=== PATIENT | female | born 1945 | race Caucasian/White ===

== ENCOUNTER → 2017-06-10 | Outpatient (CLI) | payer MEDICARE | LOC: M.RAD 10:59 | DX: Z12.31 Encounter for screening mammogram for malignant neoplasm of breast (principal); M81.0 Age-related osteoporosis without current pathological fracture; M85.88 Other specified disorders of bone density and structure, other site; Z78.0 Asymptomatic menopausal state ==

== ENCOUNTER 2018-05-17 09:20 | Emergency (ER) | payer MEDICARE ==
[~2018-05-17] VITALS: Ht 157.5 cm; Wt 104.3 kg
[2018-05-17] MEDS ORDERED: SYNTHROID175 MCG PO (09:38)
[2018-05-17] MEDS ORDERED: CARDIZEM CD120 MG PO (09:39)
[2018-05-17] MEDS ORDERED: SYNTHROID75 MCG PO (09:40)
[2018-05-17 12:19] LABS: ABSOLUTE EOSINOPHILS 0.1 thou/uL (0.0-0.7); ABSOLUTE LYMPHOCYTES 2.3 thou/uL (0.8-5.3); ABSOLUTE MONOCYTES 0.4 thou/uL (0.0-1.2); ABSOLUTE NEUTROPHILS 2.9 thou/uL (1.6-8.1); BASOPHILS 0.6 %; EOSINOPHILS 2.2 %; HEMATOCRIT 40.9 % (37.0-47.0); HEMOGLOBIN 13.8 gm/dL (12.0-15.0); LYMPHOCYTES 40.4 %; MCH 30.6 pg (26.0-34.0); MCHC 33.7 g/dL (28.0-37.0); MCV 90.7 fL (80.0-100.0); MONOCYTES 6.6 %; MPV 7.6 fl. (7.2-11.1); NUCLEATED RBCS 0 /100WBC; PLATELET COUNT* 280 thou/uL (150-400); POLYS 50.2 %; RBC 4.51 mil/uL (4.20-5.00); RDW-CV 13.2 % (10.5-14.5); WBC 5.8 thou/uL (4.0-11.0)
[2018-05-17 12:26] LABS: CALCIUM 8.9 mg/dL (8.5-10.1); CREATININE 0.8 mg/dL (0.6-1.3); POTASSIUM 4.4 mmol/L (3.5-5.1)
[2018-05-17 12:30] LABS: ALBUMIN 3.5 g/dL (3.4-5.0); TOTAL BILIRUBIN 0.3 mg/dL (<0.1-1.0); TOTAL PROTEIN 7.1 g/dL (6.4-8.2)
[2018-05-17] MEDS ORDERED: DIAZEPAM2 MG PO (13:17)
[2018-05-17 13:24] LABS: URINE BILIRUBIN NEGATIVE (Negative); URINE BLOOD NEGATIVE (Negative); URINE CLARITY CLEAR; URINE COLOR YELLOW; URINE GLUCOSE-RANDOM NEGATIVE (Negative); URINE KETONES NEGATIVE (Negative); URINE LEUKOCYTES-REFLEX NEGATIVE (Negative); URINE NITRITE-REFLEX NEGATIVE (Negative); URINE PROTEIN NEGATIVE (Negative); URINE SPECIFIC GRAVITY 1.015 (1.005-1.030); URINE UROBILINOGEN 0.2 E.U./dl (0.2-1.0)
[2018-05-17 13:58] VITALS: BP 143/64
== END 2018-05-17 13:59 | disposition home or self-care (01) ==
LOC: M.ERS 09:20
PROVIDERS: Personal Emergency Response Attendant
DX: R42 Dizziness and giddiness (principal); I10 Essential (primary) hypertension; E03.9 Hypothyroidism, unspecified; K21.9 Gastro-esophageal reflux disease without esophagitis; F32.9 Major depressive disorder, single episode, unspecified; M25.569 Pain in unspecified knee; G89.29 Other chronic pain; Z91.040 Latex allergy status; Z90.710 Acquired absence of both cervix and uterus

== ENCOUNTER → 2018-05-23 | Outpatient (CLI) | payer MEDICARE ==
[~2018-05-23] MED LIST: CARDIZEM CD120 MG PO; DIAZEPAM2 MG PO; SYNTHROID175 MCG PO; SYNTHROID75 MCG PO
== END ==
LOC: M.ULTRA 05-19 10:36
DX: I35.0 Nonrheumatic aortic (valve) stenosis (principal); R42 Dizziness and giddiness; R11.0 Nausea; H53.9 Unspecified visual disturbance

== ENCOUNTER → 2018-07-11 | Outpatient (CLI) | payer MEDICARE | LOC: M.RAD 15:29 | DX: Z12.31 Encounter for screening mammogram for malignant neoplasm of breast (principal) ==

== ENCOUNTER → 2019-07-17 | Outpatient (CLI) | payer MEDICARE | LOC: M.RAD 05:51 | DX: Z12.31 Encounter for screening mammogram for malignant neoplasm of breast (principal) ==

== ENCOUNTER → 2019-07-19 | Outpatient (CLI) | payer MEDICARE | LOC: M.ULTRA 09:23 | DX: N63.10 Unspecified lump in the right breast, unspecified quadrant (principal); N60.01 Solitary cyst of right breast ==

== ENCOUNTER → 2020-01-19 | Outpatient (CLI) | payer MEDICARE | LOC: M.RAD 01-02 15:26 → M.ULTRA 01-04 10:40 → M.RAD 01-04 10:40 | PROVIDERS: ATTEND Family Medicine | DX: N63.0 Unspecified lump in unspecified breast (principal); N64.89 Other specified disorders of breast ==

== ENCOUNTER → 2020-09-06 | Outpatient (CLI) | payer OTHER | LOC: M.RAD 08-30 13:31 | PROVIDERS: ATTEND Family Medicine | DX: Z12.31 Encounter for screening mammogram for malignant neoplasm of breast (principal); N63.10 Unspecified lump in the right breast, unspecified quadrant; R91.8 Other nonspecific abnormal finding of lung field; R92.1 Mammographic calcification found on diagnostic imaging of breast ==

== ENCOUNTER → 2020-09-12 | Outpatient (CLI) | payer OTHER ==
--- NOTE | 2020-09-18 10:08 | PATH ---
[address] [address] PATHOLOGY RPT PROCEDURE Name: GAGE SMITH Room: [facility]#: [id number] Admission: 09/12/20 Date of : 47 Discharge: Report #: [id number] Path Case #: [id number] [facility] Accession Number: [id number] . 01 Material submitted: . Subareolar - RIGHT BREAST MASS SUBAREOLAR. Modifiers: right . 01 Clinical history: . IN FORMALIN AT 9:35 0.96 X 1.15 X 0.85 CM SUBAREOLAR . 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 SEE COMMENT. . (ANA LILIA:ruth; 09/16/2020) . . Surgical Pathology Cancer Case Summary . INVASIVE CARCINOMA OF THE BREAST: Biopsy . Procedure ___ Other: Not specified . Specimen Laterality ___ Right . Tumor Site ___ Other: Subareolar . Tumor Size ___ Greatest dimension of largest invasive focus >1 mm: 11 mm . Histologic Type ___ Invasive carcinoma of no special type (ductal) . Histologic Grade (Nael Histologic Score) . Glandular (Acinar)/Tubular Differentiation ___ Score 2 (10% to 75% of tumor area forming glandular/tubular structures) . Nuclear Pleomorphism ___ Score 2 (cells larger than normal with open vesicular nuclei, visible nucleoli, and moderate variability in both size and shape) [place] [address] PATHOLOGY RPT PROCEDURE Name: DANNLISAGAGE Room: [facility] Teddy#: [id number] Admission: 09/12/20 Date of : 47 Discharge: Report #: [id number] Path Case #: [id number] ___ Score 2 . Overall Grade ___ Grade 2 (scores of 6 or 7) . Ductal Carcinoma In Situ (DCIS) ___ Present . Architectural Patterns ___ Cribriform . Nuclear Grade (if DCIS is present) ___ Grade II (intermediate) . Necrosis ___ Not identified . Lymphovascular Invasion ___ Not identified . Microcalcifications ___ Present in invasive carcinoma ___ Present in non-neoplastic tissue . Ancillary Studies . Biomarker Studies ___ Pending . (ANA LILIA:ruth; 09/16/2020) QLM 09/16/2020 1032 Local . 02 Comment: Approximately 75% of submitted tissues are involved by invasive neoplasm. Properly-controlled immunohistochemical stains performed on A1 show the neoplastic cells to have the following characteristics, supporting the diagnosis: . E-cadherin: Positive CK7: Positive . Breast tumor profile studies are pending on A2 and will be the subject of an addendum report. Mable Nuñez ([facility] Breast Navigator) notified at approximately 1015 on 09/16/2020. . Reviewed with Dr. Casey Mclaughlin, who agrees with the diagnosis. . (ANA LILIA:ruth; 09/16/2020) [place] [address] PATHOLOGY RPT PROCEDURE Name: GAGE SMITH Room: [facility]#: [id number] Admission: 09/12/20 Date of : 47 Discharge: Report #: [id number] Path Case #: [id number] . 02 Addendum: . Special studies report received from [facility], [address] [place] [address], [address], [place], [address], on case [id number], labeled with their number [id number], dated 09/17/2020. . Breast/Prognostic Marker Analysis . Specimen Site: Rt Breast, Mass, Subareolar, Breast Carcinoma (Biopsy) Specimen ID #: [id number] . ER (Estrogen Receptor) Positive Percent: 95.00% Analysis: Manual Staining Intensity: Strong Internal Control: Present and Positive . WV (Progesterone Receptor) Negative Percent: 0.50% Analysis: Manual Staining Intensity: Weak to Moderate Internal Control: Present and Positive . HER2 Negative Score: 0 Analysis: Manual . Ki-67 High Proliferation Percent: 25.00% Analysis: Manual . . Time to Fixation (Cold Ischemic Time): 1 minute Duration of Fixation: 12 hours and 15 minutes Type of Fixative: 10% Neutral Buffered Formalin . . at [facility]. Eden Kennedy M.D. Pathologist . . Methodology: The HER2 Receptor protein expression is analyzed [place] [address] PATHOLOGY RPT PROCEDURE Name: GAGE SMITH Room: [facility]#: [id number] Admission: 09/12/20 Date of : 47 Discharge: Report #: [id number] Path Case #: [id number] rabbit monoclonal antibody (clone 4B5). This assay is used for diagnostic determination of the HER2 protein over-expression in paraffin embedded, formalin fixed breast cancer tissue on the [employer] Benchmark. The specimen is processed using a secondary antibody-HRP conjugate detection system. The membrane staining of the tumor is determined either by manual score or image analysis. This antibody is intended for in vitro diagnostic use. The score is reported as 0, 1+, 2+, or 3+. This test is used for clinical purposes. . A rabbit monoclonal antibody (clone SP1) that recognized the Estrogen Receptor is used to perform immunohistochemistry on routinely fixed (formalin) paraffin embedded tissue on the [employer] Benchmark. The specimen is processed using a secondary antibody-HRP conjugate detection system. The percentage of stained tumor nuclei is determined either manually or by image analysis. This test is intended for in vitro diagnostic use. This test is used for clinical purposes. . A rabbit monoclonal antibody (clone 1E2) that recognized the Progesterone Receptor is used to perform immunohistochemistry on routinely fixed (formalin) paraffin embedded tissue on the [employer] Benchmark. The specimen is processed using a secondary antibody-HRP conjugate detection system. The percentage of stained tumor nuclei is determined either manually or by image analysis. This test is intended for in vitro diagnostic use. This test is used for clinical purposes. . A rabbit monoclonal antibody (clone 30-9) that recognized Ki67 is used to perform immunohistochemistry on routinely fixed (formalin) paraffin embedded tissue on the [employer] Benchmark. The specimen is processed using a secondary antibody-HRP conjugate detection system. The percentage of stained tumor nuclei is determined either manually or by image analysis. This test is intended for in vitro diagnostic use. This test is used for clinical purposes. . Intended Use: This antibody is intended for in vitro diagnostic (IVD) use. HER2 (4B5) is a rabbit monoclonal antibody intended for the semi-quantitative detection of HER2 antigen in sections of formalin-fixed, paraffin embedded neoplastic tissue. . This antibody is intended for in vitro diagnostic (IVD) use. Estrogen Receptor (ER) (SP1) is a rabbit monoclonal antibody (IgG) that is intended for the qualitative detection of estrogen receptor (ER) antigen in sections of formalin-fixed, paraffin-embedded tissue. ER is a rabbit monoclonal antibody that recognizes human estrogen receptor alpha. . This antibody is intended for in vitro diagnostic (IVD) use. Progesterone Receptor (WV) (1E2) is a rabbit monoclonal antibody (IgG) that is intended for the qualitative detection of progesterone receptor (WV) antigen in sections of formalin fixed, paraffin embedded tissue. WV is a rabbit [facility] [address] [place] [address] PATHOLOGY RPT PROCEDURE Name: GAGE SMITH Room: [facility]#: [id number] Admission: 09/12/20 Date of : 47 Discharge: Report #: [id number] Path Case #: [id number] monoclonal antibody that recognizes the A and B forms of the human progesterone receptor. . This antibody is intended for in vitro diagnostic (IVD) use. Ki-67 (30-9) is a rabbit monoclonal antibody (IgG) directed against C-terminal portion of Ki-67 antigen. Staining for Ki-67 can be used to aid in assessing the proliferative activity of normal and neoplastic tissue. Ki-67 is a nuclear protein expressed in proliferating cells. During the cell cycle, the Ki-67 antigen is present in the G1, S, G2 and M phase but is absent in the G0 (quiescent phase). . Disclaimer: This Test was performed by [facility] at [facility], [address]. . [facility] is a business unit of [facility] a wholly-owned subsidiary of [employer]. . This assay has not been validated on decalcified tissues. Results should be interpreted with caution if this specimen was decalcified given the likelihood of false negativity on decalcified specimens. . Any image(s) that accompany this report is/are a provider service representative image(s) only and should not be used to render a diagnosis. . This interpretation is contingent on the specimen and the clinical information received. . For any special tests/stains performed, known positive cells or tissues are tested with each marker and examined to ensure positivity. Positive and negative internal controls, if present, react appropriately. . This analysis is an adjunct to the evaluation of the referring physician and does not represent a final diagnosis. . The immunohistochemistry tests performed at [facility] [place]. were validated on tissue fixed in 10% neutral buffered formalin. The performance characteristics of the tests performed on tissue processed in other fixatives is not known. . HER2 testing at [facility] [place] is performed in compliance with the 2018 updated ASCO/CAP Clinical Practice Guideline Focused Update. If the result is EQUIVOCAL (2+), it must be confirmed by an alternative assay such as FISH. . REFERENCE : Leila CASAREZ, Warren TABARES, Uma KH, et al: Human epidermal growth factor receptor 2 testing in breast cancer: ASCO/CAP clinical practice guideline focused update. [place] [address] PATHOLOGY RPT PROCEDURE Name: GAGE SMITH Room: [facility]#: [id number] Admission: 09/12/20 Date of : 47 Discharge: Report #: [id number] Path Case #: [id number] 2017;142:8069-4095. . HER2 and ER/WV ASCO/CAP guidelines require fixation in neutral buffered formalin for a minimum of 6 and a maximum of 72 hours. Fixation times less than 6 hours may not adequately preserve cell proteins. Fixation times longer than 72 hours may cause excess cross-linking of proteins reducing the antigen available for staining. Either scenario can cause reduced staining; hence false negative results are possible and should be considered for these situations if the HER2 IHC score is less than 3+ or ER or WV is negative (no staining or <1% positive). It is recommended that specimens fixed longer than 72 hours with HER2 IHC scores less than 3+ be confirmed by HER2 FISH. The time from biopsy/excision to fixation in formalin (cold ischemic time) must be less than 1 hour. Time to fixation (cold ischemic time) greater than 1 hour should be interpreted with caution. HER2 testing, mainly HER2 by FISH, is particularly vulnerable since excessive cold ischemic time results in preferential loss of HER2 probe signals that may lead to false negative results. Use of unstained slides cut more than 6 weeks before analysis is not recommended. . ER/PgR testing at [facility] [place]. is performed in compliance with the ASCO/CAP Clinical Practice Guidelines. If the result for ER is 1-10% it is reported as Low Positive, < 1% is Negative and > 10% is Positive. PgR is reported as Negative if < 1% and Positive if > or equal to 1%. . REFERENCE: Uma HANCOCK, Warren TABARES, Porsche M,et al. Estrogen and progesterone receptor testing in breast cancer. ASCO/CAP guideline update. Arch Pathol Lab Med. 2020;144:545-563. . SCORE STAINING PATTERN IN TUMOR CELLS INTERPRETATION RESULTS 0 No staining observed or incomplete, faint membrane staining in less than or equal to 10% of tumor cells. Negative 1+ Incomplete, faint membrane staining in greater than 10% of tumor cells. Negative 2+ Weak to moderate complete membrane staining observed in greater than 10% of tumor cells. Equivocal* *Must be confirmed by alternative assay (IHC/FISH/Dual BRYAN) 3+ Intense, complete membrane staining in greater than 10% of tumor cells. Positive . A complete copy of the report is [place] [address] PATHOLOGY RPT PROCEDURE Name: GAGE SMITH Room: [facility]#: [id number] Admission: 09/12/20 Date of : 47 Discharge: Report #: [id number] Path Case #: [id number] Professional and Technical services performed by [facility] at [address], [place] [address]. . (ANA LILIA:[facility] 09/18/2020) . [facility]/09/18/2020 Addendum Electronically Signed by Micah Lazar MD, Pathologist . 02 Electronically signed: . Micah Lazar MD, Pathologist NPI- [id number] . 01 Gross description: . The specimen is received in formalin, labeled "Gage Smith, right breast mass subareolar". Received are multiple needle cores of fibrofatty tissue measuring 2.8 x 1.8 x 0.3 cm in aggregate dimensions. The specimen is entirely submitted in cassettes A1 through A3. The cold ischemic time is 1 minute. The total formalin fixation time is 12 hours and 15 minutes. ([facility]; 09/12/2020) QA/QA 09/12/2020 1630 Local . 02 Pathologist provided ICD-10: C50.911 . 02 CPT . 294511, M87698, P79831 Specimen Comment: A courtesy copy of this report has been sent to [phone] Specimen Comment: Report sent to Performed at: 01 [facility] [address], [place], [place] [id number] MD Jarvis Lindsey MD Phone: [phone] Performed at: 02 [facility] [address], [place], [place] [address] MD Micah Lazar MD Phone: [phone]
== END | disposition home or self-care (01) ==
LOC: M.ULTRA 08:07
PROVIDERS: ATTEND Family Medicine
DX: N63.10 Unspecified lump in the right breast, unspecified quadrant (principal); C50.911 Malignant neoplasm of unspecified site of right female breast; R92.8 Other abnormal and inconclusive findings on diagnostic imaging of breast; Z79.899 Other long term (current) drug therapy

== ENCOUNTER → 2020-09-24 | Outpatient (CLI) | payer OTHER ==
[2020-09-24 13:52] LABS: CREATININE 0.8 mg/dL (0.6-1.3)
== END ==
LOC: M.LAB 13:23 → M.MRI 14:30
PROVIDERS: ATTEND Surgery
DX: C50.911 Malignant neoplasm of unspecified site of right female breast (principal)

== ENCOUNTER → 2020-10-01 | Outpatient (CLI) | payer OTHER | LOC: M.RAD 09:49 | PROVIDERS: ATTEND Family Medicine | DX: M85.88 Other specified disorders of bone density and structure, other site (principal) ==

== ENCOUNTER → 2020-11-01 | Outpatient (CLI) | payer OTHER ==
[~2020-11-01] MED LIST changes: +ROXICODONE5 MG PO; +VITAMIN D210 MCG PO
== END | disposition home or self-care (01) ==
LOC: M.ULTRA 12:30
PROVIDERS: ATTEND Radiology Diagnostic Radiology
DX: N63.11 Unspecified lump in the right breast, upper outer quadrant (principal); Z98.890 Other specified postprocedural states; Z79.899 Other long term (current) drug therapy; Z91.040 Latex allergy status

== ENCOUNTER → 2020-11-04 | Day surgery (SDC) | payer OTHER ==
[2020-11-04 07:35] LABS: HEMATOCRIT 39.4 % (37.0-47.0); HEMOGLOBIN 13.6 gm/dL (12.0-15.0); MCH 31.2 pg (26.0-34.0); MCHC 34.5 g/dL (28.0-37.0); MCV 90.7 fL (80.0-100.0); MPV 7.7 fl. (7.2-11.1); RBC 4.34 mil/uL (4.20-5.00); RDW-CV 13.7 % (10.5-14.5); WBC 6.2 thou/uL (4.0-11.0)
[2020-11-04 07:41] LABS: CALCIUM 9.2 mg/dL (8.5-10.1); CREATININE 0.9 mg/dL (0.6-1.3); POTASSIUM 4.3 mmol/L (3.5-5.1)
--- NOTE | 2020-11-04 14:19 | EKG ---
[place] [address] ELECTROCARDIOGRAM REPORT Name: SMITA DUNHAM Room: [facility]#: [id number] Admission: 11/04/20 Attend Phys: Vanesa Bloom, Discharge: Date of : 47 Date of Service: 11/04/20747 Report #: [id number] THIS REPORT FOR: //name// [facility] Test Date: 2020-11-04 Test Time: 07:48:53 Pat Name: SMITA DUNHAM Department: Room: Gender: Counselor/Art Therapist: : 1945 Requested By: Vanesa Bloom Order Number: [id number] Reading MD: uJan Beltran Measurements Intervals Trinity Rate: 66 P: 39 NC: 171 QRS: -30 QRSD: 98 T: 5 QT: 407 QTc: 427 Interpretive Statements Sinus rhythm Left axis deviation No previous ECG available for comparison Electronically Signed On 11-04-2020 14:19:13 CDT by Juan Beltran [email or web address] <ELECTRONICALLY SIGNED> By: Juan Beltran MD, [facility] 11/04/20 1419 7 Juan Beltran MD, FACC /EPI
--- NOTE | 2020-11-06 11:08 | OP ---
[address] [address] OPERATIVE REPORT Name: SMITA DUNHAM Room: [facility]#: [id number] Admission: 11/04/20 Attend Phys: Vanesa Bloom DO Discharge: Date of : 47 Report #: [id number] THIS REPORT FOR: cc: Flakita Loyd Linda J. DO Brock, Christie M. DO ~ DOC #: [id number] Vanesa Bloom DO DATE OF SURGERY: 11/04/2020 PREPROCEDURE DIAGNOSIS: Right breast cancer. POSTPROCEDURE DIAGNOSIS: Right breast cancer. FINDINGS: An RFID tag had been placed just beneath the nipple. Uptake at the nipple with Neoprobe was 11,000. We found 3 deep sentinel lymph nodes; #1 was 1500, #2 was 1200; #3 was 500. SURGEON: Vanesa Bloom DO CO-SURGEON: Tyler Calixto, PGY1. PROCEDURE PERFORMED: Right nipple and areolar complex excision with right deep sentinel lymph node dissection. ANESTHESIA: LMA and local. ESTIMATED BLOOD LOSS: 15. DRAINS: None. SPECIMENS: Right nipple-areolar complex and sentinel lymph nodes x 3. COMPLICATIONS: None. CONDITION: Stable. DISPOSITION: PACU to home. HISTORY OF PRESENT ILLNESS: The patient is a very pleasant 75-year-old female, who presented to my office with a change in her mammogram. She had undergone a right breast biopsy, which did find a right breast cancer. She was seen by Oncology and Radiation Oncology and underwent an MRI. Unfortunately, the mass was just deep to the nipple-areolar complex. So, it did not appear that we would be able to save the nipple. These findings were discussed with the patient and she agreed to proceed with the [place] [address] OPERATIVE REPORT Name: SMITA DUNHAM Room: [facility]#: [id number] Admission: 11/04/20 Attend Phys: Vanesa Bloom DO Discharge: Date of : 47 Report #: [id number] and sentinel lymph node dissection. Risks discussed included bleeding, infection, pain, scar formation, need for further surgery, injury to nerve, artery or vein causing chronic pain, numbness or swelling and risks of general anesthesia. The patient understood these risks and elected to proceed. In the preoperative period, the patient presented to Radiology and underwent a right RFID tag placement and also a right nuclear medicine injection. She then presented to preop, where she underwent informed consent. DESCRIPTION OF PROCEDURE: She was taken to the OR and laid supine on the operating table. SCDs were placed on bilateral lower extremities. Ancef was given in the perioperative period. General LMA anesthesia was induced by Anesthesia without difficulty. Right chest and axilla were prepped and draped in standard sterile fashion. Time-out was performed to verify the patient and procedure. 5 mL of Lymphazurin blue dye were injected in the periareolar area. The hologic RFID probe was then brought into the field and the tag was identified just deep to the nipple on the right. An elliptical incision was marked out around the right nipple. 20 mL of 0.5% Marcaine were injected into the planned incision. Incision was made with 15 blade. Cautery was used for hemostasis. Cautery was then used to dissect the breast tissue away. The hologic probe was used several times to verify placement of the clip. Once our specimen was completely extracted, it was marked in the superior and lateral directions, was sent to Radiology. The radiologist did call and indicated that we had excellent specimen with both clips intact. Hemostasis was assured within this wound. We then turned our attention to the right axilla. Neoprobe was brought onto the field and the injection site was interrogated and it was approximately 11,000. Neoprobe was then used to interrogate the axilla and the area of highest uptake was marked. 10 mL of 0.5% Marcaine were injected in this area. Incision was made with 15 blade. Cautery was used for hemostasis. Weitlaner retractor was placed within the wound. Then, using a combination of blunt and cautery dissection, we dissected down till the clavipectoral fascia was identified. This was then also gently incised. At this point, a very clear blue lymphatic was identified. Using the blue dye and the Neoprobe for guidance, we dissected fairly deep into the axilla. At this point, we started getting high uptakes on the Neoprobe. Three sentinel lymph nodes were finally identified; the first was blue and had an uptake of 1500, this was handed off as sentinel lymph node #1; an additional lymph node was identified just lateral to this lymph node and had an uptake of 1200, this was handed off as sentinel lymph node #2; a third lymph node was also identified with an uptake of 500, this was also handed off and was labeled as sentinel lymph node #3. The axilla was then copiously irrigated. Hemostasis was assured. The breast was also irrigated and hemostasis was assured. Bonnie was placed within both wounds. Both wounds were then closed in a layered fashion using deep and superficial stitches of 3-0 Vicryl in an inverted interrupted fashion. Skin wounds were closed with running 4-0 Monocryl. A total of 30 mL of 0.5% Marcaine was used to anesthetize the wounds. Wounds were then cleansed and covered with Dermabond. The patient was [address] [address] OPERATIVE REPORT Name: SMITA DUNHAM [id number] Admission: 11/04/20 Attend Phys: Vanesa Bloom DO Discharge: Date of : 47 Report #: [id number] then allowed to awaken from anesthesia, was extubated and transported to the recovery room with no further difficulties. Counts were correct x 2 at the conclusion of the case. DO MAMTA Hough/ROBE <ELECTRONICALLY SIGNED> By: Vanesa Bloom DO 11/06/20 1108 0938 1031Chal Bloom DO /nt
--- NOTE | 2020-11-07 15:08 | PATH ---
[address] [address] PATHOLOGY RPT PROCEDURE Name: GAGE SMITH Room: [facility]#: [id number] Admission: 11/04/20 Date of : 47 Discharge: Report #: [id number] Path Case #: [id number] [facility] Accession Number: [id number] . 01 Material submitted: . PART A: nipple - NIPPLE. Modifiers: right PART B: breast - SENTINEL NODE 1500. Modifiers: right, 1500 PART C: breast - SENTINEL NODE 1200. Modifiers: right, 1200 PART D: breast - SENTINEL NODE 500. Modifiers: right, 500 . 01 Clinical history: . INVASIVE DUCTAL CARCINOMA RIGHT BREAST A- COMPLEX SHORT SUTURE=SUPERIOR; LONG SUTURE=LATERAL . 02 Diagnosis: A. Nipple complex: - INFILTRATING DUCTAL ADENOCARCINOMA, INTERMEDIATE GRADE, SPANNING 13 MM, ADJACENT TO CHANGES OF PRIOR BIOPSY, WITH FOCAL INVOLVEMENT OF SUPERIOR MARGIN (2 MM SPAN). SEE COMMENT. . B. [place] node 1500: - One benign lymph node (0/1). See comment. . C. Submitted as "sentinel node 1200": - Three benign lymph nodes (0/3). See comment. . D. [place] node 500: - One benign lymph node (0/1). See comment. . (ANA LILIA:emir; 11/07/2020) . . CASE SUMMARY: (DCIS OF THE BREAST: Resection) . Procedure ___ Not specified . Specimen Laterality ___ Right . TUMOR . +Tumor Site ___ Other: Subareolar . +Tumor Size ___ Greatest dimension of largest invasive focus greater than 1 mm: 13 [place] [address] PATHOLOGY RPT PROCEDURE Name: GAGE SMITH Room: [facility]#: [id number] Admission: 11/04/20 Date of : 47 Discharge: Report #: [id number] Path Case #: [id number] ___ Invasive carcinoma of no special type (ductal) . Histologic Grade (Reading Histologic Score) Glandular (Acinar) / Tubular Differentiation ___ Score 2 (10% to 75% of tumor area forming glandular / tubular structures) . Nuclear Pleomorphism ___ Score 2 (Cells larger than normal with open vesicular nuclei, visible nucleoli, and moderate variability in both size and shape) . Mitotic Rate ___ Score 2 . Overall Grade ___ Grade 2 (scores of 6 or 7) . + Tumor Focality + ___ Single focus of invasive carcinoma . Ductal Carcinoma In Situ (DCIS) ___ Present + ___ Negative for extensive intraductal component (EIC) . + Size (Extent) of DCIS +___ At least 3 mm + Architectural Patterns + ___ Cribriform . + Nuclear Grade (if DCIS is present in specimen, see Table 2) + ___ Grade II (intermediate) . + Necrosis + ___ Not identified . + Lobular Carcinoma In Situ (LCIS) + ___ Not identified . Tumor Extension Skin ___ Skin is present and uninvolved . Nipple ___ DCIS does not involve the nipple epidermis . Skeletal Muscle ___ No skeletal muscle is present . Invasive [place] [address] PATHOLOGY RPT PROCEDURE Name: GAGE SMITH Di Room: [facility]#: [id number] Admission: 11/04/20 Date of : 47 Discharge: Report #: [id number] Path Case #: [id number] ___ Positive for invasive carcinoma ___ Superior + Extent: 2 mm . + Distance from other margins: + ___ Posterior: 18 mm + ___ Inferior: 19 mm + ___ Medial: 37 mm + ___ Lateral: 25 mm . DCIS Margins ___ Uninvolved by DCIS . Distance from closest margin: ___ 3 mm . Closest margin: Superior . Regional Lymph Nodes ___ Uninvolved by tumor cells Total Number of Lymph Nodes Examined: 5 Number of [place] Nodes Examined: 5 . Treatment Effect in the Breast ___ No known presurgical therapy . + Lymphovascular Invasion + ___ Not identified . + Dermal Lymphovascular Invasion + ___ Not identified . . PATHOLOGIC STAGE CLASSIFICATION (pTNM, AJCC 8TH EDITION) Primary Tumor (pT) ___ pT1: Tumor less than or equal to 20 mm in greatest dimension . Regional Lymph Nodes Modifier ___ (sn): [place] node(s) evaluated. . Regional Lymph Nodes (pN) ___ pN0: No regional lymph node metastasis identified or ITCs only . + Ancillary Studies + ___ Breast Biomarker Testing Performed on Previous Biopsy + Testing Performed on A2 . + Estrogen Receptor (ER) + ___ Positive 95% [place] [address] PATHOLOGY RPT PROCEDURE Name: GAGE SMITH Room: [facility]#: [id number] Admission: 11/04/20 Date of : 47 Discharge: Report #: [id number] Path Case #: [id number] . + Progesterone Receptor (PgR) + ___ Weak 0.5% . + HER2 (by immunohistochemistry) + ___ Negative (Score 0) . + ___ Ki-67 percentage of positive nuclei: 25% . + Microcalcifications + ___ Present in invasive carcinoma . (ANA LILIA:emir; 11/07/2020) [facility] 11/07/2020 1431 Local . 02 Comment: The tumor is seen to invade in several patterns including a region of well circumscribed consolidated nests and more extensively as cords and individual infiltrating cells and ductal structures seem to permeate fat reminiscent of that seen with lobular carcinoma. Properly controlled immunohistochemical studies are performed on several blocks with results as follows: . A8: Keratin DELORIS - highlights infiltrating pattern of neoplastic cells. E-cadherin - positive. . A9: Keratin AE1/AE3 - highlights neoplastic cells. . The tumor is seen to focally involve the superior margin for a 2 mm span in A8. Properly controlled keratin AE1/AE3 stains performed on B1, C1 and D1 are all negative. . (ANA LILIA:emir; 11/07/2020) . 02 Electronically signed: . Micah Lazar MD, Pathologist NPI- [id number] . 01 Gross description: . A. The specimen is received in formalin, labeled "Gage Smith, short superior, long lateral". The specimen is additionally labeled on the requisition as, "nipple, complex, short superior, long lateral". The source is further designated in the clinical background as, "right breast". Received is a 48 g lumpectomy specimen measuring 6.3 cm from medial to lateral, 4.8 cm from anterior to posterior, and 3.9 cm from superior to inferior. The anterior aspect of the [place] [address] PATHOLOGY RPT PROCEDURE Name: GAGE SMITH Room: [facility] Teddy#: [id number] Admission: 11/04/20 Date of : 47 Discharge: Report #: [id number] Path Case #: [id number] ellipse of skin measuring 5.4 x 3.0 cm with an everted nipple and areolar complex, measuring 1.3 x 1.3 and 2.8 x 2.3 cm, respectively. The surgical margins are inked as follows: Superior-red, inferior-blue, lateral-orange, medial-yellow, anterior (surrounding the skin)-green, posterior-black. The specimen is sectioned from lateral to medial aspects into 15 slices to reveal a previous biopsy site measuring 1.2 x 0.5 x 0.4 cm, which is located in slices 6 through 9. The previous biopsy site is 0.8 cm from the superior margin, 1.3 cm from the inferior margin, 2.1 cm from the posterior margin, 2.7 cm from the skin/anterior margin, 3.2 cm from the medial margin, and 2.5 cm from the lateral margin. Anterior/superior to the previous biopsy site, there is a well-demarcated pale tenorio mass measuring 1.1 x 0.8 x 0.5 cm, and is located in slices 7 and 8. The mass grossly approaches the superior margin, is 1.9 cm from the inferior margin, 1.8 cm from the posterior margin, 1.6 cm from the skin/anterior margin, 3.7 cm from the medial margin, and 2.5 cm from the lateral margin. The remainder of the specimen is comprised of yellow fibrofatty tissue. The specimen is submitted representatively as follows: . A1 slice 1, serially sectioned (most lateral margin) A2 sales representative meats slice 2 A3 sales representative meats slice 3 A4 sales representative meats slice 4 A5 sales representative meats slice 5 A6 previous biopsy site slice 6 A7 previous biopsy site and adjacent mass slice 7 (with closest superior margin) A8 previous biopsy site and adjacent mass slice 8 A9 previous biopsy site slice 9 A10 sales representative meats slice 10, to include perpendicular section through nipple A11 sales representative meats slice 11 A12 sales representative meats slice 12 A13 sales representative meats slice 13 A14 slice 14 A15 slice 15, serially sectioned (most medial margin). . The collection time and time in formalin are not provided. The time out of formalin is 2340 on 11/05/2020. . B. The specimen is received in formalin, labeled "Gage Smith, sentinel node 1500". Received is a segment of yellow-tenorio lobulated tissue measuring 3.3 x 2.2 x 1.2 cm in greatest dimensions. Dissection and palpation of the specimen reveals a single lymph node measuring 0.9 cm. The lymph node is bisected and entirely submitted in cassette B1. Immunohistochemical stains are ordered. . C. The specimen is received in formalin, labeled "Gage Smith, sentinel node 1200". Received is a segment of yellow-tenorio lobulated tissue measuring 3.5 x 2.5 x 1.1 cm in greatest dimensions[place] [address] PATHOLOGY RPT PROCEDURE Name: GAGE SMITH Room: [facility]#: [id number] Admission: 11/04/20 Date of : 47 Discharge: Report #: [id number] Path Case #: [id number] palpation of the specimen reveals three lymph nodes ranging in size from 0.3-0.5 cm in maximum dimensions. The lymph nodes are submitted intact in cassette C1. Immunohistochemical stains are ordered. . D. The specimen is received in formalin, labeled "Gage Smith, sentinel node 500". Received is a segment of yellow-tenorio lobulated tissue measuring 3.8 x 2.8 x 0.7 cm in greatest dimensions. Dissection and palpation of the specimen reveals a single lymph node measuring 0.6 cm in maximum dimensions. The lymph node is bisected and entirely submitted in cassette D1. Immunohistochemical stains are ordered. (CAA; 11/05/2020) QAC/QAC 11/07/2020 1114 Local . 02 Pathologist provided ICD-10: C50.011 . 02 CPT . 513999, 569338, 069182, 384006, [id number], X60777 Specimen Comment: A courtesy copy of this report has been sent to [phone] Specimen Comment: [phone] Specimen Comment: Report sent to / DR FRAZIER Performed at: 01 [facility] [address], [place], [place] [id number] MD Jarvis Lindsey MD Phone: [phone] Performed at: 02 [facility] [address] [place] [place], [place] [id number] MD Micah Lazar MD Phone: [phone]
== END | disposition home or self-care (01) ==
LOC: M.SUR 07:13
PROVIDERS: ATTEND Surgery
DX: C50.011 Malignant neoplasm of nipple and areola, right female breast (principal); R59.0 Localized enlarged lymph nodes; I10 Essential (primary) hypertension; E03.9 Hypothyroidism, unspecified; F32.9 Major depressive disorder, single episode, unspecified; K21.9 Gastro-esophageal reflux disease without esophagitis; Z98.890 Other specified postprocedural states; Z79.899 Other long term (current) drug therapy; Z91.040 Latex allergy status

== ENCOUNTER → 2020-12-05 | Outpatient (CLI) | payer OTHER | LOC: M.LAB 10:46 | PROVIDERS: ATTEND Surgery | DX: Z20.822 Contact with and (suspected) exposure to COVID-19 (principal) ==

== ENCOUNTER → 2020-12-06 | Day surgery (SDC) | payer OTHER ==
[2020-12-06 12:29] LABS: HEMATOCRIT 38.8 % (37.0-47.0); HEMOGLOBIN 13.3 gm/dL (12.0-15.0); MCH 30.5 pg (26.0-34.0); MCHC 34.3 g/dL (28.0-37.0); MCV 88.9 fL (80.0-100.0); RBC 4.37 mil/uL (4.20-5.00); WBC 5.6 thou/uL (4.0-11.0)
[2020-12-06 13:02] LABS: POTASSIUM 4.2 mmol/L (3.5-5.1)
--- NOTE | 2020-12-06 16:59 | OP ---
[address] [address] OPERATIVE REPORT Name: SMITA DUNHAM Room: [facility]#: [id number] Admission: 12/06/20 Attend Phys: Vanesa Bloom DO Discharge: Date of : 47 Report #: [id number] THIS REPORT FOR: cc: Flakita Loyd Linda J. DO Brock, Christie M. DO ~ DATE OF SURGERY: 12/06/2020 PREPROCEDURE DIAGNOSIS: Right breast cancer. POSTOPERATIVE DIAGNOSIS: Right breast cancer. FINDINGS: Right breast incision with small underlying cavity. SURGEON: Vanesa Bloom DO CO-SURGEON: Reddy Onofre, PGY1 MEAT SCRUBBER: DAVID Eastman student. PROCEDURE PERFORMED: Right breast re-excision for margin. ANESTHESIA: LMA and local. ESTIMATED BLOOD LOSS: 2 mL. DRAINS: None. SPECIMENS: Right breast superior margin. COMPLICATIONS: None. CONDITION: Stable. DISPOSITION: PACU to home. HISTORY OF PRESENT ILLNESS: The patient is a very williams 75-year-old female who is status post recent nipple areolar complex excision for right breast cancer. Her pathology report returned with a possible focal 1-2 mm positive superior margin. She was then consented for reexcision of the superior margin. Risks discussed included bleeding, infection, pain, scar formation, need for further surgery and risks of general anesthesia. The patient understood these risks and elected to proceed. DESCRIPTION OF PROCEDURE: The patient was brought to the operating room. She was placed supine on the operating room table. SCDs were placed on bilateral [facility] [address] [place] [address] OPERATIVE REPORT Name: SMITA DUNHAM Room: [facility]#: [id number] Admission: 12/06/20 Attend Phys: Vanesa Bloom DO Discharge: Date of : 47 Report #: [id number] lower extremities. Ancef was given in the perioperative period. LMA anesthesia was induced by Anesthesia without difficulty. Right breast was prepped and draped in standard sterile fashion. Timeout was performed to verify the patient and procedure. A 10 mL of 0.5% Marcaine were injected in the area of the previous incision. A small portion of the incision was reopened with a 10 blade. Cautery was used for hemostasis. I then gently opened the previous cavity with blunt finger dissection. The superior margin was clearly visible. It was grasped using an Allis clamp. Superior margin was then excised using cautery. It was marked in the superior and lateral direction, was handed off for permanent pathology. Hemostasis was assured. Wound was copiously irrigated. Wound was closed in a layered fashion using deep and superficial stitches of 3-0 Vicryl in interrupted fashion. The skin wound was closed with running 4-0 Monocryl. A total of 30 mL of 0.5% Marcaine were used to anesthetize the wound. The wound was then cleansed and covered with Dermabond. The patient was then allowed to awaken from anesthesia, was extubated, and transported to the recovery room with no further difficulties. Counts were correct x 2 at the conclusion of the case. <ELECTRONICALLY SIGNED> By: Vanesa Bloom DO 12/06/20 1659 1251 1321Chal Bloom DO /nt
--- NOTE | 2020-12-10 15:08 | PATH ---
[address] [address] PATHOLOGY RPT PROCEDURE Name: SMITA DUNHAM Di Room: [facility] Teddy#: [id number] Admission: 12/06/20 Date of : 47 Discharge: Report #: [id number] Path Case #: [id number] [facility] Accession Number: [id number] . 01 Material submitted: . breast - RIGHT BREAST TISSUE SUPERIOR MARGIN. Modifiers: right . 01 Clinical history: . BREAST LESION RIGHT BREAST LUMPECTOMY . 02 Diagnosis: Right breast tissue superior margin: - Breast tissue with atypical lobular hyperplasia, evidence of recent prior surgery and luminal calcifications, with no residual malignancy. See comment. (ANA LILIA:emir; 12/09/2020) [facility] 12/10/2020 1425 Local . 02 Comment: Recent "nipple complex" excision showed infiltrating ductal carcinoma, intermediate grade, with focal involvement of superior margin ([id number]). (ANA LILIA:water resource manager; 12/09/2020) . 02 Electronically signed: . Micah Lazar MD, Pathologist NPI- [id number] . 01 Gross description: . Fixative: Formalin Labeled: R breast tissue superior margin, short suture=superior, long suture=lateral Specimen received: Oriented lumpectomy specimen Oriented: Short suture at superior and a long suture at lateral Dimensions: 5.1 cm from medial to lateral, 3.2 cm from anterior to posterior, 2.3 cm from superior to inferior Weight: 10 g The specimen is inked as follows: superior-red inferior-blue anterior-green posterior-black lateral-orange medial-yellow Sectioned from: Medial to lateral Number of slices: 11 Lesion: A lesion is not present. The inferior [place] [address] PATHOLOGY RPT PROCEDURE Name: SMITA DUNHAM Di Room: [facility]#: [id number] Admission: 12/06/20 Date of : 47 Discharge: Report #: [id number] Path Case #: [id number] concave and fibrotic, possibly consistent with prior lumpectomy site. Biopsy clip: No Uninvolved breast parenchyma: Yellow and lobulated with 10% fibrous tissue . The specimen is submitted as follows: A1 slice 1, medial margin, perpendicular sections A2-A10 slices 2-10, submitted sequentially A11 slice 11, lateral margin, perpendicular sections . The specimen is removed from the patient at 1327 and placed in formalin at an unspecified time on 12/06/2020. The specimen is removed from formalin at 1850 on 12/08/2020. The specimen is in formalin for greater than 6 hours and less than 72 hours. ([facility] 12/08/2020) [facility] 12/09/2020 1544 Local . 02 Pathologist provided ICD-10: N62, C50.919 . 02 CPT . 082300 Specimen Comment: A courtesy copy of this report has been sent to [phone] Specimen Comment: Report sent to DR. FRAZIER Performed at: 01 [facility] [address], [place], [place] [id number] MD Jarvis Lindsey MD Phone: [phone] Performed at: 02 [facility] [address], [place], [place] [id number] MD Micah Lazar MD Phone: [phone]
== END | disposition home or self-care (01) ==
LOC: M.SUR 06:47
PROVIDERS: ATTEND Surgery
DX: N62 Hypertrophy of breast (principal); R92.1 Mammographic calcification found on diagnostic imaging of breast; Z98.890 Other specified postprocedural states; Z91.040 Latex allergy status; Z85.3 Personal history of malignant neoplasm of breast